=== PATIENT | female | born 1965 | race Caucasian/White ===

== ENCOUNTER 2017-12-25 05:21 | Emergency (ER) | payer BC, OTHER ==
[~2017-12-25] VITALS: Ht 162.6 cm; Wt 74.8 kg
[2017-12-25] MEDS ORDERED: SERTRALINE HCL50 MG PO (05:31)
== END 2017-12-25 07:40 | disposition home or self-care (01) ==
LOC: ER 05:21
DX: R51 Headache (principal); R20.2 Paresthesia of skin; J45.909 Unspecified asthma, uncomplicated; Z88.2 Allergy status to sulfonamides; Z91.013 Allergy to seafood; Z90.49 Acquired absence of other specified parts of digestive tract; Z90.10 Acquired absence of unspecified breast and nipple